=== PATIENT | female | born 1960 | race Caucasian/White ===

== ENCOUNTER 2017-10-28 14:29 | Emergency (ER) | payer BC ==
[~2017-10-28] VITALS: Ht 165.1 cm; Wt 93.0 kg
[~2017-10-28 14:29] MED LIST: HYDR-2966 PO; LISI20TA29 PO; LORA-1455 PO
[2017-10-28] MEDS ORDERED: AMLO2.5T74 PO (14:40)
[2017-10-28] MEDS ORDERED: AMLO-96 PO (14:40)
[2017-10-28] MEDS ORDERED: ONDANSETRON 4 MG/2 ML VIAL IVP ONE (15:00)
--- NOTE | 2017-10-28 15:17 | ER Report ---
History and Physical Time Seen By MD: 14:45 Hx. of Stated Complaint: PT REPORTS DIZZINESS, LIKE THE ROOM IS SPINNING HPI/ROS CHIEF COMPLAINT: Dizziness, nausea, hypertension HISTORY OF PRESENT ILLNESS: Patient is a 57-year-old female who presents the ED with complaint of nausea and dizziness that started about 2 hours ago. Patient states that she was sitting and reading and started to feel some dizziness. She states that she got up to laid down and felt much more dizzy with this change of position. She states that she felt quite nauseated but did not have any emesis. Patient denies any headache, fever, neck pain. She denies any abdominal pain or diarrhea. She states that she did have episode of vertigo many years ago but has had nothing like that since. She states that she took her blood pressure at home and states that he was about 140/90 was concerned with that elevated blood pressure. She states that she is on 2 different blood pressure medications but had not taken them and so she took them 2 hours ago when she checked her blood pressure. She denies any chest pain, palpitations, shortness of breath. REVIEW OF SYSTEMS: Constitutional: No fever, no chills. Eyes: No discharge. ENT: No sore throat. Cardiovascular: See history of present illness. Respiratory: See history of present illness. No cough. Gastrointestinal: See history of present illness. Genitourinary: No hematuria. Musculoskeletal: No back pain. Skin: No rashes. Neurological: See history of present illness. Allergies: Coded Allergies: ciprofloxacin (Verified Allergy, Unknown, 10/28/17) terbinafine (Verified Allergy, Unknown, 10/28/17) Home Meds Active Scripts Meclizine Hcl (MECLIZINE HCL) 25 Mg Tab.chew, 25 MG PO TID Y for prn, #14 TAB.CHEW Prov:TRISTON JAEGER PA-C 10/28/17 Lorazepam (ATIVAN) 0.5 Mg Tablet, 1-2 TAB PO QHS Y for sleep or muscle spasm relief, #15 Prov:KELSIE BARRERA DO 07/19/16 Reported Medications Amlodipine Besylate (AMLODIPINE BESYLATE) 2.5 Mg Tablet, 1 TAB PO QDAY, #30 TAB 10/28/17 Lisinopril (LISINOPRIL) 20 Mg Tablet, 40 MG PO QDAY, TAB 09/28/15 Discontinued Reported Medications Amlodipine Besylate (AMLODIPINE BESYLATE) 5 Mg Tablet, 1 TAB PO QDAY, TAB 10/28/17 Hydrochlorothiazide (HYDROCHLOROTHIAZIDE) 25 Mg Tablet, 1 TAB PO QDAY, TAB 07/19/16 Reviewed Nurses Notes: Yes Old Medical Records Reviewed: Yes Hx Smoking: No Hx Substance Use Disorder: No Constitutional Vital Sign - Last 24 Hours 10/28/17 10/28/17 10/28/17 10/28/17 14:30 14:38 14:44 15:00 Temp 98.8 Pulse 106 79 Resp 16 8 B/P (MAP) 147/91 147/91 (109) 136/84 (101) Pulse Ox 96 98 O2 Delivery Room Air 10/28/17 10/28/17 15:14 15:35 Pulse 73 Resp 12 B/P (MAP) 156/80 (105) Pulse Ox 97 Physical Exam General Appearance: The patient is alert, has no immediate need for airway protection and no signs of toxicity. She appears to be no acute distress. Eyes: Pupils equal and round no pallor or injection. EOMs are full bilaterally. She has some mild nystagmus with gaze to the right. ENT, Mouth: Mucous membranes are moist. Respiratory: There are no retractions, lungs are clear to auscultation. Cardiovascular: Regular rate and rhythm. Gastrointestinal: Abdomen is soft and non tender, no masses, bowel sounds normal. Neurological: Cranial nerves II-12 intact. Skin: Warm and dry, no rashes. Musculoskeletal: Neck is supple non tender. Extremities are nontender, nonswollen and have full range of motion. DIFFERENTIAL DIAGNOSIS: After history and physical exam differential diagnosis was considered for dizziness including but not limited to peripheral and central causes of vertigo, orthostatic causes including dehydration, and blood loss. Procedure: The patient has positive symptoms when turning to the right. Based on this information the patient had a negative Hallpike when laid down with head turned the left. The Hallpike was repeated with head turned to the right and this time was positive. The Rosa maneuver was then performed by holding the patient down with head turned to the right for 2 minutes, then the patient's head was turned 90 degrees to the left for 2 minutes. The patient was then turned on the left side and head turned towards the ground and held for an additional 2 minutes. Lastly a Hallpike was performed to the original affected side and the patient was slightly improved. Medical Decision Making Data Points Result Diagram: 10/28/17 1508 10/28/17 1508 Laboratory Hematology Test 10/28/17 15:08 Red Blood Count 5.27 M/uL (4.17-5.56) Mean Corpuscular Volume 86.2 fL (80.0-96.0) Mean Corpuscular Hemoglobin 29.1 pg (26.0-33.0) Mean Corpuscular Hemoglobin Concent 33.7 g/dL (32.0-36.0) Red Cell Distribution Width 14.4 % (11.5-14.5) Mean Platelet Volume 8.4 fL (7.2-11.1) Neutrophils (%) (Auto) 69.3 % (39.4-72.5) Lymphocytes (%) (Auto) 19.9 % (17.6-49.6) Monocytes (%) (Auto) 7.5 % (4.1-12.4) Eosinophils (%) (Auto) 2.5 % (0.4-6.7) Basophils (%) (Auto) 0.8 % (0.3-1.4) Nucleated RBC Relative Count (auto) 0.1 /100WBC Neutrophils # (Auto) 5.9 K/uL (2.0-7.4) Lymphocytes # (Auto) 1.7 K/uL (1.3-3.6) Monocytes # (Auto) 0.6 K/uL (0.3-1.0) Eosinophils # (Auto) 0.2 K/uL (0.0-0.5) Basophils # (Auto) 0.1 K/uL (0.0-0.1) Nucleated RBC Absolute Count (auto) 0.01 K/uL Sodium Level 137 mmol/L (137-145) Potassium Level 3.9 mmol/L (3.5-5.0) Chloride Level 102 mmol/L (98-107) Carbon Dioxide Level 22 mmol/L (22-31) Blood Urea Nitrogen 16 mg/dl (7-18) Creatinine 0.80 mg/dl (0.52-1.04) Glomerular Filtration Rate Calc > 60.0 Random Glucose 94 mg/dl (75-110) Calcium Level 9.3 mg/dl (8.4-10.2) Total Bilirubin 0.3 mg/dl (0.2-1.3) Aspartate Amino Transf (AST/SGOT) 24 U/L (0-35) Alanine Aminotransferase (ALT/SGPT) 38 U/L (0-56) Alkaline Phosphatase 66 U/L (0-126) Troponin I < 0.012 ng/ml Total Protein 7.9 gm/dl (6.3-8.2) Albumin 4.2 g/dl (3.5-5.0) Chemistry Test 10/28/17 15:08 White Blood Count 8.6 k/uL (4.5-11.0) Red Blood Count 5.27 M/uL (4.17-5.56) Hemoglobin 15.3 g/dL (12.0-16.0) Hematocrit 45.5 % (34.0-47.0) Mean Corpuscular Volume 86.2 fL (80.0-96.0) Mean Corpuscular Hemoglobin 29.1 pg (26.0-33.0) Mean Corpuscular Hemoglobin Concent 33.7 g/dL (32.0-36.0) Red Cell Distribution Width 14.4 % (11.5-14.5) Platelet Count 297 K/uL (150-450) Mean Platelet Volume 8.4 fL (7.2-11.1) Neutrophils (%) (Auto) 69.3 % (39.4-72.5) Lymphocytes (%) (Auto) 19.9 % (17.6-49.6) Monocytes (%) (Auto) 7.5 % (4.1-12.4) Eosinophils (%) (Auto) 2.5 % (0.4-6.7) Basophils (%) (Auto) 0.8 % (0.3-1.4) Nucleated RBC Relative Count (auto) 0.1 /100WBC Neutrophils # (Auto) 5.9 K/uL (2.0-7.4) Lymphocytes # (Auto) 1.7 K/uL (1.3-3.6) Monocytes # (Auto) 0.6 K/uL (0.3-1.0) Eosinophils # (Auto) 0.2 K/uL (0.0-0.5) Basophils # (Auto) 0.1 K/uL (0.0-0.1) Nucleated RBC Absolute Count (auto) 0.01 K/uL Glomerular Filtration Rate Calc > 60.0 Calcium Level 9.3 mg/dl (8.4-10.2) Total Bilirubin 0.3 mg/dl (0.2-1.3) Aspartate Amino Transf (AST/SGOT) 24 U/L (0-35) Alanine Aminotransferase (ALT/SGPT) 38 U/L (0-56) Alkaline Phosphatase 66 U/L (0-126) Troponin I < 0.012 ng/ml Total Protein 7.9 gm/dl (6.3-8.2) Albumin 4.2 g/dl (3.5-5.0) EKG/Imaging EKG Interpretation 12 lead EKG: Rhythm: Normal sinus rhythm, rate 78 bpm Upatoi: normal QRS: normal ST segments: No acute ST changes identified. There is slight T-wave inversion in V1. Lead 3 has very low voltage. ED Course/Re-evaluation ED Course Will obtain labs and EKG. 10/28/2017 3:50:54 pm - discussed all labs and EKG with patient. Everything is a essentially normal. We'll give her 25 mg by mouth meclizine. She states that she is feeling improved already. Given her symptoms she likely does have some vertigo and more than likely she does have some BPPV and discussed this with her. Decision to Disposition Date: Oct 28, 2017 Decision to Disposition Time: 15:59 Depart Departure Latest Vital Signs Vital Signs Date Time Temp Pulse Resp B/P (MAP) Pulse Ox O2 Delivery O2 Flow Rate FiO2 10/28/17 15:35 156/80 (105) 10/28/17 15:14 73 12 97 10/28/17 14:30 98.8 Room Air Impression: Primary Impression: Dizziness Condition: Improved Disposition: HOME OR SELF-CARE Referrals: MARIBETH SAN DO (PCP) New Scripts Meclizine Hcl (MECLIZINE HCL) 25 Mg Tab.chew 25 MG PO TID Y for prn, #14 TAB.CHEW Prov: TRISTON JAEGER PA-C 10/28/17 Patient Instructions: Benign Paroxysmal Positional Vertigo (ED), Dizziness (ED) Additional Instructions: Stay well-hydrated. Follow-up with primary care provider in 2-3 days. If having worsening or concerning symptoms may return to the emergency department. TRISTON JAEGER PA-C Oct 28, 2017 15:17
[2017-10-28 15:32] LABS: PLATELET COUNT, AUTOMATED 297 K/uL (150-450)
--- NOTE | 2017-10-28 15:41 | EKG ---
FACILITY: [facility] - [place] PATIENT NAME: KATINA MURPHY : [id number] MR: [id number] V: [id number] EXAM DATE: ORDERING PHYSICIAN: TRISTON JAEGER TECHNOLOGIST: Freddy Loera Reason : Blood Pressure : / mmHG Vent. Rate : 068 BPM Atrial Rate : 068 BPM P-R Int : 152 ms QRS Dur : 086 ms QT Int : 398 ms P-R-T Axes : 039 019 039 degrees QTc Int : 423 ms Normal sinus rhythm Low voltage QRS Poor R wave progression consistent with an old ant/sep NV vs lead placement When compared with ECG of 19-JUL-2016 04:13, Relatively unchanged Confirmed by CAMRON HAMEED ([id number]) on 10/28/2017 3:56:36 PM Referred By: Confirmed By:CAMRON HAMEED
[2017-10-28] MEDS ORDERED: MECLIZINE HCL 25 MG TAB PO ONE (15:45)
[2017-10-28 16:00] VITALS: BP 102/92
[2017-10-28] MEDS ORDERED: MECL25TA27 PO (16:01)
== END 2017-10-28 16:15 | disposition home or self-care (01) ==
LOC: ER 14:47
DX: R42 Dizziness and giddiness (principal)
CPT/HCPCS: 84484; 85025; 93005; 96374; 99284; J2405; J8597; 82040; 82247; 82310; 82374; 82435; 82565; 82947; 84075; 84132; 84155; 84295; 84450; 84460; 84520

== ENCOUNTER → 2017-10-31 | Outpatient (CLI) | payer BC ==
[~2017-10-31] MED LIST changes: +AMLO-96 PO; +AMLO2.5T74 PO; +MECL25TA27 PO
--- NOTE | 2017-11-03 15:46 | RT HOLTER TEST ---
FACILITY: [facility] PATIENT NAME: KATINA MURPHY : [id number] MR: [id number] V: [id number] EXAM DATE: ORDERING PHYSICIAN: MARIBETH SAN TECHNOLOGIST: VIV Hook-up date: 2017-10-31 16:11:00 Duration: 47:59:00 Test Indications: palpitations Medications: [id number] QRS complexes 4 Ventricular ectopics which represent <1 % of total QRS comp. 13 Supraventricular ectopics which represent <1 % of total QRS comp. * Paced QRS complexes which represent % of total QRS comp. VENTRICULAR ECTOPY 4 Isolated 0 Bigeminal Cycles 0 Couplets 0 Runs 0 Beats in Runs * Beats LONGEST at * BPM at :: -- * Beats FASTEST at * BPM at :: -- SUPRAVENTRICULAR ECTOPY 13 Isolated 0 Couplets 0 Runs 0 Beats in Runs * Beats LONGEST at * BPM at :: -- * Beats FASTEST at * BPM at :: -- HEART RATES 52 MIN at 02:18:02 2017-11-01 76 AVG 116 MAX at 15:03:30 2017-11-02 LONGEST RR 1.416 secs at 05:38:12 2017-11-02 S-T LEVELS Channel 1 -12.800 mm MIN at 16:11:00 2017-10-31 -12.800 mm MAX at 16:11:00 2017-10-31 Channel 2 -12.800 mm MIN at 16:11:00 2017-10-31 -12.800 mm MAX at 16:11:00 2017-10-31 Channel 3 -12.800 mm MIN at 16:11:00 2017-10-31 -12.800 mm MAX at 16:11:00 2017-10-31 Maximum heart rate is sinus tachycardia at 116 beats per minute (BPM). Minimum heart rate is sinus br adycardia at 52 BPM. All diary entries (varying complaints) are associated with normal sinus rhythm. Most diary entries are associated with T wave flattening or inversion in leads 2 and 3. One diary entry of driving/chest pain is associated with more significant T wave inversion in leads 2 an d 3. There were 4 isolated PVCs and 13 isolated PACs. No other arrhythmias were identified. Confirmed by KEE MAYORGA ([id number]) on 11/03/2017 3:44:52 PM Referred By: Overread By: KEE MAYORGA
== END ==
LOC: RESP 00:43
PROVIDERS: ATTEND Family Medicine
DX: R00.2 Palpitations (principal)
CPT/HCPCS: 93225; 93226

== ENCOUNTER → 2017-11-06 | Outpatient (CLI) | payer BC ==
--- NOTE | 2017-11-07 08:57 | RADIOLOGY IMAGING REPORT ---
FACILITY: [facility] PATIENT NAME: ARACELI MURPHY : [id number] MR: [id number] V: [id number] EXAM DATE: ORDERING PHYSICIAN: MARIBETH SAN TECHNOLOGIST: Araceli Charles EXAMINATION:TWO-DIMENSIONAL ECHOCARDIOGRAPH REASON:SOB/PALPITATIONS 2D Measurements (normal values in centimeters) LV endLV endRV endVent.LV PostAorticLeftPercent DiastolicSystolicDiastolicSeptumWallRootAtriumShortening (3.5-5.7)(0.9-2.6)(0.6-1.1)(0.6-1.1)(2.0-3.7)(1.9-4.0)(25-35%) [id number]% STROKE VOLUME: 47ml ESTIMATED EJECTION FRACTION:64% PARASTERNAL LONG AXIS: Overall left ventricular systolic function does appear to be normal. Left ventricle is the upper range of normal in size. The right ventricle appears to contract normally & the TAPSE was measured within normal ranges at 3.4. Color examination of the aortic valve was unremarkable. Color examination of the mitral valve revealed a trace of mitral insufficiency present. No wall motion abnormalities were noted. PARASTERNAL SHORT AXIS: Overall left ventricular function appears to be within normal ranges. Chamber sizes are normal. No wall motion abnormalities were noted. Aortic valve is trileaflet in configuration & appears to open normally. Color examination of the aortic valve was unremarkable. APICAL FOUR AND TWO CHAMBER: Normal left ventricular ejection fraction. Right ventricle also appears to contract normally. Aortic valve area & mitral valve area both measure within normal ranges at 2.0 & 3.7cm2 respectively. Left atrial & right atrial volumes are measured within normal ranges at 28 & 23ml/m2 respectively. The tricuspid regurgitation Vmax measured 2.97m/sec. Trace to mild amount of tricuspid insufficiency is noted. A trace of mitral insufficiency is noted. SUBCOSTAL VIEW: No pericardial effusion was noted. No atrioseptal or ventriculoseptal defects were appreciated. Doppler examination of the mitral valve in diastole does reveal a normal pattern but there is some minimal reversal with Valsalva . Medial & lateral E Prime velocities are at the lower range of normal. OVERALL IMPRESSION: 1. Normal left ventricular ejection fraction of 64%. There is a mild amount of diastolic dysfunction . 2. Normal chamber sizes. 3. Right ventricle appears to contract normally. 4. A trileaflet aortic valve with no abnormalities. 5. A trace of pulmonic insufficiency & a trace of mitral insufficiency. 6. There is a mild amount of tricuspid insufficiency with estimated right ventricular systolic pressures of 38mm Hg which does include an estimated right atrial pressure of 8mm Hg. This indicates mild pulmonary hypertension & increased right ventricular systolic pressures. No other abnormalities were noted. Dictated by: Nithin Haddad M.D. on 11/06/2017 at 17:47 Transcribed by: NICOLE on 11/07/2017 at 8:21 Approved by: Nithin Haddad M.D. on 11/07/2017 at 8:57 [facility]
== END ==
LOC: US 01:17
PROVIDERS: ATTEND Family Medicine
DX: I50.30 Unspecified diastolic (congestive) heart failure (principal); I37.1 Nonrheumatic pulmonary valve insufficiency; I34.0 Nonrheumatic mitral (valve) insufficiency; I07.1 Rheumatic tricuspid insufficiency; I27.20 Pulmonary hypertension, unspecified
CPT/HCPCS: 93306

== ENCOUNTER → 2017-11-20 | Outpatient (CLI) | payer BC ==
--- NOTE | 2017-11-21 14:34 | RADIOLOGY IMAGING REPORT ---
FACILITY: [facility] PATIENT NAME: KATINA MURPHY : [id number] MR: [id number] V: [id number] EXAM DATE: [id number] ORDERING PHYSICIAN: MARIBETH SAN TECHNOLOGIST: Natasha Jackson PROCEDURE:BILATERAL DIAGNOSTIC DIGITAL MAMMOGRAM WITH CAD ASSISTED INTERPRETATION & 3D TOMOSYNTHESIS COMPARISON:Prior mammogram 11/14/16 INDICATIONS:PT WAS SUPPOSED TO HAVE A 6 MO F.U FINDINGS: DIAGNOSTIC CATEGORY 3--PROBABLY BENIGN FINDING. Moderately heterogeneous fibroglandular tissue is again seen throughout the breasts. The parenchymal pattern has RECOMMENDATIONS: SIX MONTH FOLLOW-UP DIAGNOSTIC MAMMOGRAM: LEFT BREAST. remained stable allowing for difference in mammographic technique & patient positioning. The previously noted nodular densities over the lateral portion Left breast are again seen. Today's Left breast Ultrasound did demonstrate multiple small cysts in the Left breast in addition to a well circumscribed hypoechoic nodule in the approximate 3 o'clock position of the Left breast 5cm from the nipple with no acoustic shadowing. A 6 month follow-up Left mammogram and Left breast Ultrasound is recommended unless clinical findings warrant more immediate attention. IMPRESSION: BIRADS 3: A 6 month follow-up Left mammogram and Left breast Ultrasound recommended as described. Dictated by: Janie Maxwell M.D. on 11/20/2017 at 16:47 Transcribed by: GAUTAM on 11/21/2017 at 8:29 Approved by: Janie Maxwell M.D. on 11/21/2017 at 14:33 [facility]
--- NOTE | 2017-11-21 14:34 | RADIOLOGY IMAGING REPORT ---
FACILITY: [facility] - [place] PATIENT NAME: KATINA MURPHY : [id number] MR: [id number] V: [id number] EXAM DATE: [id number] ORDERING PHYSICIAN: MARIBETH SAN TECHNOLOGIST: Elder Meza PROCEDURE:US LEFT BREAST COMPARISON:Prior Left Breast Ultrasound 11/16/16 INDICATIONS:PT WAS SUPPOSED TO HAVE 6 MO F/U FINDINGS: There are multiple small cysts identified in the lateral portion of the Left breast in the 2 o'clock, 2:30 and 3 o'clock positions ranging in size up to 7mm. There is an additional 6 x 5 x 6mm well circumscribed hypoechoic nodule with no acoustic shadowing in the 3 o'clock position of the Left breast 5cm from the nipple. A 6 month follow-up Left mammogram and Left breast Ultrasound is recommended to document stability. DIAGNOSTIC CATEGORY 3--PROBABLY BENIGN FINDING. RECOMMENDATIONS: SIX MONTH FOLLOW-UP DIAGNOSTIC MAMMOGRAM: LEFT BREAST. SIX MONTH FOLLOW-UP ULTRASOUND: LEFT BREAST. IMPRESSION: BIRADS 3: Probably benign finding A 6 month follow-up diagnostic Left mammogram and Left breast Ultrasound recommended as described above. Dictated by: Janie Maxwell M.D. on 11/20/2017 at 16:48 Transcribed by: GAUTAM on 11/21/2017 at 8:35 Approved by: Janie Maxwell M.D. on 11/21/2017 at 14:33 [facility]
== END ==
LOC: MAMO 00:30
PROVIDERS: ATTEND Family Medicine
DX: N60.02 Solitary cyst of left breast (principal); N63.21 Unspecified lump in the left breast, upper outer quadrant
CPT/HCPCS: 77062; 77066

== ENCOUNTER → 2017-11-21 | Outpatient (CLI) | payer BC | LOC: RESP 20:29 | PROVIDERS: ATTEND Family Medicine | DX: G47.33 Obstructive sleep apnea (adult) (pediatric) (principal); G47.36 Sleep related hypoventilation in conditions classified elsewhere; E66.9 Obesity, unspecified ==